=== PATIENT | male | born 1960 | race Caucasian/White ===

== ENCOUNTER 2016-05-29 08:24 | Inpatient (IN) | payer MEDICAID, OTHER ==
[2016-05-29] MEDS ORDERED: ONDANSETRON 4 MG/2 ML VIAL IVP ONE (08:41)
[2016-05-29] MEDS ORDERED: NS 1,000 ML IV ONE ×2 (08:41→10:11)
--- NOTE | 2016-05-29 08:56 | UCPHY ---
H & P Time Seen by Provider: 05/29/16 08:42 Patient Type: Established HPI/ROS: CHIEF COMPLAINT: Left lower quadrant pain HISTORY OF PRESENT ILLNESS: 55-year-old male presents with a 3 day history of left lower quadrant abdominal pain. The pain is moderate to severe and constant. Associated with a feeling of needing to have a bowel movement. He has tried laxatives and ibuprofen without any relief. No associated vomiting, dysuria, diarrhea or constipation. No prior similar symptoms. REVIEW OF SYSTEMS: Constitutional: No fever, no chills Eyes: No visual changes ENT: No sore throat Respiratory: No cough, no shortness of breath Cardiac: No chest pain Genitourinary: No hematuria, no dysuria Musculoskeletal: No leg pain or swelling Skin: No rash Neurological: No headache Psychiatric: No depression Past Medical/Surgical History: Denies Social History: no recent alcohol FH: Noncontributory Smoking Status: Never smoked Physical Exam: General Appearance: Alert, appears in pain Eyes: Pupils equal and round, no conjunctival pallor or injection ENT, Mouth: Mucous membranes moist Neck: Normal inspection Respiratory: Lungs are clear to auscultation Cardiovascular: Regular rate and rhythm Gastrointestinal: Abdomen is soft, left lower quadrant and suprapubic tenderness Neurological: A&O, nonfocal, normal gait Skin: Warm and dry, no rash Extremities: Nontender, no pedal edema Psychiatric: Mood and affect normal Constitutional: Initial Vital Signs Temperature (C) 36.6 C 05/29/16 08:43 Heart Rate 62 05/29/16 08:43 Respiratory Rate 18 05/29/16 08:43 Blood Pressure 118/80 05/29/16 08:43 O2 Sat (%) 96 05/29/16 08:43 O2 Delivery Mode Room Air Allergies/Adverse Reactions: cephalexin monohydrate [From Keflex] Allergy (Verified 05/29/16 14:34) Anaphylaxis Home Medications: Medication Instructions Recorded Ibuprofen [Motrin (*)] 400 - 600 mg PO Q4-6PRN PRN 05/29/16 Medical Decision Making - Diagnostics Imaging: CT scan of the abdomen and pelvis read by Dr. Andres Sanchez reveals acute sigmoid diverticulitis with perforation. There is a significant amount of air in the retroperitoneum. ED Course/Re-evaluation: This patient presents with left lower quadrant pain, without peritoneal signs. Clinical presentation consistent with diverticulitis versus kidney stone. Morphine 6 mg IV and Zofran 4 mg IV given for pain control. Stat CT scan of the abdomen pelvis ordered. The patient required multiple doses of IV narcotics for pain control. CT scan results discussed with the patient. Levaquin and Flagyl IV given for diverticulitis. Dr. Juan Miguel Santos was consulted and will admit the patient to [facility].. Differential Diagnosis: Differential diagnosis includes though it is not limited to appendicitis, cholecystitis, diverticulitis, pyelonephritis, bowel perforation, small bowel obstruction. - Data Points Laboratory Results: Laboratory Results 05/29/16 09:00 05/29/16 09:00 05/29/16 05/29/16 05/29/16 10:45 09:00 09:00 WBC 16.44 10^3/uL H 10^3/uL (3.80-9.50) RBC 4.58 10^6/uL 10^6/uL (4.40-6.38) Hgb 14.3 g/dL g/dL (13.7-17.5) Hct 41.0 % % (40.0-51.0) MCV 89.5 fL fL (81.5-99.8) MCH 31.2 pg pg (27.9-34.1) MCHC 34.9 g/dL g/dL (32.4-36.7) RDW 12.8 % % (11.5-15.2) Plt Count 268 10^3/uL 10^3/uL (150-400) MPV 9.0 fL fL (8.7-11.7) Neut % (Auto) 85.4 % H % (39.3-74.2) Lymph % (Auto) 5.7 % L % (15.0-45.0) Wilkes % (Auto) 7.6 % % (4.5-13.0) Eos % (Auto) 0.2 % L % (0.6-7.6) Baso % (Auto) 0.2 % L % (0.3-1.7) Nucleat RBC Rel Count 0.0 % % (0.0-0.2) Absolute Neuts (auto) 14.04 10^3/uL H 10^3/uL (1.70-6.50) Absolute Lymphs (auto) 0.93 10^3/uL L 10^3/uL (1.00-3.00) Absolute Monos (auto) 1.25 10^3/uL H 10^3/uL (0.30-0.80) Absolute Eos (auto) 0.04 10^3/uL 10^3/uL (0.03-0.40) Absolute Basos (auto) 0.04 10^3/uL 10^3/uL (0.02-0.10) Absolute Nucleated RBC 0.00 10^3/uL 10^3/uL (0-0.01) Immature Gran % 0.9 % % (0.0-1.1) Immature Gran # 0.14 10^3/uL H 10^3/uL (0.00-0.10) Sodium 139 mEq/L mEq/L (134-144) Potassium 4.0 mEq/L mEq/L (3.5-5.2) Chloride 104 mEq/L mEq/L (97-110) Carbon Dioxide 19 mEq/l L mEq/l (22-31) Anion Gap 16 mEq/L mEq/L (8-16) BUN 12 mg/dL mg/dL (7-23) Creatinine 0.9 mg/dL mg/dL (0.7-1.3) Estimated GFR > 60 Glucose 105 mg/dL H mg/dL (70-100) Calcium 9.6 mg/dL mg/dL (8.5-10.4) Total Bilirubin Conjugated Bilirubin Unconjugated Bilirubin AST ALT Alkaline Phosphatase Total Protein Albumin Urine Color YELLOW Urine Appearance CLEAR Urine pH 5.5 (5.0-7.5) Ur Specific [place] 1.025 (1.002-1.030) Urine Protein 1+ H (NEGATIVE) Urine Ketones 3+ H (NEGATIVE) Urine Blood 1+ H (NEGATIVE) Urine Nitrate NEGATIVE (NEGATIVE) Urine Bilirubin POSITIVE H (NEGATIVE) Urine Urobilinogen 0.2 EU EU (0.2-1.0) Ur Leukocyte Esterase NEGATIVE (NEGATIVE) Urine RBC 1-3 /hpf /hpf (0-3) Urine WBC 0-1 /hpf /hpf (0-3) Ur Epithelial Cells 1+ /lpf /lpf (NONE-1+) Amorphous Sediment 2+ /hpf H /hpf (NONE-1+) Urine Bacteria 2+ /hpf H /hpf (NONE SEEN) Urine Mucus 3+ /lpf H /lpf (NONE-1+) Ur Culture Indicated? INDICATED H (NI) Urine Glucose NEGATIVE (NEGATIVE) 05/29/16 08:50 WBC RBC Hgb Hct MCV MCH MCHC RDW Plt Count MPV Neut % (Auto) Lymph % (Auto) Wilkes % (Auto) Eos % (Auto) Baso % (Auto) Nucleat RBC Rel Count Absolute Neuts (auto) Absolute Lymphs (auto) Absolute Monos (auto) Absolute Eos (auto) Absolute Basos (auto) Absolute Nucleated RBC Immature Gran % Immature Gran # Sodium Potassium Chloride Carbon Dioxide Anion Gap BUN Creatinine Estimated GFR Glucose Calcium Total Bilirubin 1.1 mg/dL mg/dL (0.1-1.4) Conjugated Bilirubin 0.5 mg/dL mg/dL (0.0-0.5) Unconjugated Bilirubin 0.6 mg/dL mg/dL (0.0-1.1) AST 19 IU/L IU/L (17-59) ALT 17 IU/L L IU/L (21-72) Alkaline Phosphatase 92 IU/L IU/L (38-126) Total Protein 7.6 g/dL g/dL (6.3-8.2) Albumin 4.0 g/dL g/dL (3.5-5.0) Urine Color Urine Appearance Urine pH Ur Specific [place] Urine Protein Urine Ketones Urine Blood Urine Nitrate Urine Bilirubin Urine Urobilinogen Ur Leukocyte Esterase Urine RBC Urine WBC Ur Epithelial Cells Amorphous Sediment Urine Bacteria Urine Mucus Ur Culture Indicated? Urine Glucose Medications Given: Discontinued Medications Hydromorphone HCl (Dilaudid) 1 mg IVP EDNOW ONE Stop: 05/29/16 12:52 Last Admin: 05/29/16 14:29 Dose: Not Given Sodium Chloride (Ns) 1,000 mls @ 0 mls/hr IV ONCE ONE PRN Reason: Wide Open Stop: 05/29/16 08:42 Last Admin: 05/29/16 09:18 Dose: 1,000 mls Sodium Chloride (Ns) 1,000 mls @ 0 mls/hr IV ONCE ONE PRN Reason: Wide Open Stop: 05/29/16 10:12 Last Admin: 05/29/16 10:32 Dose: 1,000 mls Levofloxacin/Dextrose (Levaquin 750 Mg (Premix)) 150 mls @ 100 mls/hr IV EDNOW ONE PRN Reason: Protocol Stop: 05/29/16 12:40 Last Admin: 05/29/16 12:13 Dose: 150 mls Metronidazole/Sodium Chloride (Flagyl 500 Mg (Premix)) 100 mls @ 100 mls/hr IV EDNOW ONE PRN Reason: Protocol Stop: 05/29/16 12:10 Last Admin: 05/29/16 12:46 Dose: 100 mls Morphine Sulfate (Morphine) 6 mg IVP EDNOW ONE Stop: 05/29/16 08:42 Last Admin: 05/29/16 09:08 Dose: 6 mg Morphine Sulfate (Morphine) 4 mg IVP EDNOW ONE Stop: 05/29/16 10:12 Last Admin: 05/29/16 10:32 Dose: 4 mg Morphine Sulfate (Morphine) 4 mg IVP EDNOW ONE Stop: 05/29/16 11:59 Last Admin: 05/29/16 12:14 Dose: 4 mg Ondansetron HCl (Zofran) 4 mg IVP EDNOW ONE Stop: 05/29/16 08:42 Last Admin: 05/29/16 09:18 Dose: 4 mg Departure - Departure Disposition: [facility] In[facility] Acute Clinical Impression: Diverticulitis Qualifiers: Diverticulitis site: large intestine Diverticulitis bleeding: without bleeding Diverticulitis complication: with perforation Qualified Code(s): K57.20 - Diverticulitis of large intestine with perforation and abscess without bleeding Condition: Fair - PQRS PQRS Measurement: NA
[2016-05-29 09:09] LABS: % IMMATURE GRANULYOCYTES 0.9 % (0.0-1.1); ABSOLUTE IMMATURE GRANULOCYTES 0.14 10^3/uL (0.00-0.10); ADD DIFF? NO; ADD MORPH? NO; ADD SCAN? NO; ATYPICAL LYMPHOCYTE FLAG 10 (0-99); FRAGMENT RBC FLAG 0 (0-99); HEMOGLOBIN 14.3 g/dL (13.7-17.5); LEFT SHIFT FLG 0 (0-99); LIPEMIA HEMOLYSIS FLAG 90 (0-99); MEAN CELL HEMOGLOBIN 31.2 pg (27.9-34.1); MEAN CELL HEMOGLOBIN CONCENTR. 34.9 g/dL (32.4-36.7); MEAN CELL VOLUME 89.5 fL (81.5-99.8); PLATELET CLUMPS FLAG 0 (0-99); PLATELET COUNT 268 10^3/uL (150-400); RED BLOOD CELL COUNT 4.58 10^6/uL (4.40-6.38); RED CELL DISTRIBUTION WIDTH 12.8 % (11.5-15.2)
[2016-05-29 09:24] LABS: ANION GAP 16 mEq/L (8-16); CALCIUM 9.6 mg/dL (8.5-10.4); CARBON DIOXIDE 19 mEq/l (22-31); CHLORIDE 104 mEq/L (97-110); CREATININE 0.9 mg/dL (0.7-1.3); GLOMERULAR FILTRATION RATE > 60; GLUCOSE 105 mg/dL (70-100); SODIUM 139 mEq/L (134-144)
[2016-05-29 10:47] LABS: COLOR YELLOW; LEUKOCYTE ESTERASE,URINE NEGATIVE (NEGATIVE); NITRITE,URINE NEGATIVE (NEGATIVE); PH,URINE 5.5 (5.0-7.5)
[2016-05-29 11:03] LABS: BACTERIA 2+ /hpf (NONE SEEN); MUCUS 3+ /lpf (NONE-1+)
[2016-05-29 11:04] LABS: AMORPHOUS 2+ /hpf (NONE-1+); WBC,URINE 0-1 /hpf (0-3)
[2016-05-29 11:30] LABS: BILIRUBIN,TOTAL 1.1 mg/dL (0.1-1.4); BILIRUBIN-CONJUGATED 0.5 mg/dL (0.0-0.5); BILIRUBIN-UNCONJUGATED 0.6 mg/dL (0.0-1.1); TOTAL PROTEIN 7.6 g/dL (6.3-8.2)
[2016-05-29] MEDS: HYDROmorphONE/DILAUDID 1 MG/ML SYR IVP ONE ×2 (12:45→14:29)
[2016-05-29] MEDS ORDERED: ONDANSETRON 4 MG/2 ML VIAL IVP PRN (14:27)
[2016-05-29] MEDS: LR 1,000 ML IV SCH (16:03)
--- NOTE | 2016-05-29 21:36 | GHP ---
DATE OF ADMISSION: 05/29/2016 CHIEF COMPLAINT: Left lower quadrant pain. PRESENT ILLNESS: The is the 4th day the patient has noted left lower quadrant pain. He has had charly e chills with this. No bowel movements for the last 2 days. Some nausea, which actually began at [facility] after receiving Dilaudid. He has never had a previous similar episode. ALLERGIES: None. CURRENT MEDICATIONS: None. SOCIAL HISTORY: Nonsmoker. Drinks alcohol, a couple beers a day. PAST SURGICAL HISTORY: Previous surgery, knee. REVIEW OF SYSTEMS: Denies asthma, heart trouble, diabetes, epilepsy, rheumatic fever. Single. PHYSICAL EXAM: HEENT: No scleral icterus. Pharynx clear. NECK: Supple without adenopathy. LUNG S: Clear. HEART:? Normal S1, S2 without murmur. ABDOMEN: Soft except for the left lower quadran t where there is mild guarding. No mass felt. No hernias present. EXTREMITIES, NEUROLOGIC: Gross ly normal. LABORATORY: Exams at [facility] include urine positive for bacteria and epithelial ce lls and ketones. Electrolytes fairly unremarkable with a creatinine of 0.9. White blood count 16,0 00, 85 segs, normal platelets, and hematocrit 41. A CT scan revealed sigmoid diverticulitis with some free air around the left colon, as well as quest ion of fluid tracking anterior to the psoas muscle. ASSESSMENT: Microperforation, left colon, with retroperitoneal air. The patient is afebrile and no t tachycardic. Abdomen is soft other than the left lower quadrant. I suspect this will resolve wit h IV antibiotics and bowel rest. He was started on Levaquin and Flagyl at [facility], and we will continue that regimen. Should his clinical condition deteriorate, he understands he mi ght need emergency colectomy. At the present time, there is no drainable fluid collection. He will be monitored daily with a CBC. /[id number]/MODL
[2016-05-30] MEDS: ONDANSETRON 4 MG/2 ML VIAL IVP PRN ×3 (04:08→21:55)
[2016-05-30 04:40] LABS: HEMOGLOBIN 12.2 g/dL (13.7-17.5); MEAN CELL HEMOGLOBIN 30.8 pg (27.9-34.1); MEAN CELL HEMOGLOBIN CONCENTR. 33.9 g/dL (32.4-36.7); MEAN CELL VOLUME 90.9 fL (81.5-99.8); RED BLOOD CELL COUNT 3.96 10^6/uL (4.40-6.38); RED CELL DISTRIBUTION WIDTH 12.9 % (11.5-15.2)
--- NOTE | 2016-05-30 06:38 | SOAPPROG ---
SOAP Progress Note Assessment/Plan: Assessment: Plan: Subjective: vss, af feels better abd soft, less tender no flatus nor stool. cont npo, antibioitcs, etc wbc down to 13 k Objective: Vital Signs Temp Pulse Resp BP Pulse Ox 37.1 C 87 20 127/76 H 93 05/30/16 03:59 05/30/16 03:59 05/30/16 03:59 05/30/16 03:59 05/30/16 03:59 Laboratory Results 05/30/16 04:26 05/29/16 05/30/16 05/31/16 05:59 05:59 05:59 Intake Total 2600 Balance 2600 ICD10 Worksheet Patient Problems: Problems Problem Status Onset Diverticulitis Acute
[2016-05-30] MEDS: levOFLOXACIN 500 MG/DEXTROSE 100 ML IV SCH (08:06)
[2016-05-30] MEDS: LR 1,000 ML IV SCH (21:55)
[2016-05-31 06:02] LABS: HEMATOCRIT 34.1 % (40.0-51.0); HEMOGLOBIN 11.7 g/dL (13.7-17.5); MEAN CELL HEMOGLOBIN 31.8 pg (27.9-34.1); MEAN CELL HEMOGLOBIN CONCENTR. 34.3 g/dL (32.4-36.7); MEAN CELL VOLUME 92.7 fL (81.5-99.8); RED BLOOD CELL COUNT 3.68 10^6/uL (4.40-6.38)
[2016-05-31] MEDS: levOFLOXACIN 500 MG/DEXTROSE 100 ML IV SCH (08:14)
--- NOTE | 2016-05-31 10:05 | SOAPPROG ---
SOAP Progress Note Assessment/Plan: Assessment: Plan: Subjective: vss, af abd with less pain. had a bm louis advance diet. Objective: Vital Signs Temp Pulse Resp BP Pulse Ox 36.9 C 76 18 129/87 H 91 L 05/31/16 07:06 05/31/16 07:06 05/31/16 07:06 05/31/16 07:06 05/31/16 07:06 Laboratory Results 05/31/16 05:11 05/30/16 05/31/16 06/01/16 05:59 05:59 05:59 Intake Total 2600 3330 Output Total 450 Balance 2600 2880 ICD10 Worksheet Patient Problems: Problems Problem Status Onset Diverticulitis Acute
[2016-05-31] MEDS ORDERED: LR 1,000 ML IV SCH (10:30)
[2016-06-01 05:38] LABS: HEMATOCRIT 33.1 % (40.0-51.0); HEMOGLOBIN 11.3 g/dL (13.7-17.5); MEAN CELL HEMOGLOBIN 30.6 pg (27.9-34.1); MEAN CELL HEMOGLOBIN CONCENTR. 34.1 g/dL (32.4-36.7); MEAN CELL VOLUME 89.7 fL (81.5-99.8); RED BLOOD CELL COUNT 3.69 10^6/uL (4.40-6.38); RED CELL DISTRIBUTION WIDTH 12.9 % (11.5-15.2)
--- NOTE | 2016-06-01 07:42 | SOAPPROG ---
SOAP Progress Note Assessment/Plan: Assessment: Plan: Subjective: vss, af wbc 9k abd softer, dehairing machine tender. had 2 bm's cont present care, possibly shift to po antibiotics tomorrow. Objective: Vital Signs Temp Pulse Resp BP Pulse Ox 37.2 C 71 16 124/80 H 95 05/31/16 23:27 05/31/16 23:27 05/31/16 23:27 05/31/16 23:27 05/31/16 23:27 Laboratory Results 06/01/16 04:36 05/31/16 06/01/16 06/02/16 05:59 05:59 05:59 Intake Total 3330 1790 Output Total 450 400 Balance 2880 1390 ICD10 Worksheet Patient Problems: Problems Problem Status Onset Diverticulitis Acute
[2016-06-01] MEDS: levOFLOXACIN 500 MG/DEXTROSE 100 ML IV SCH (08:57)
[2016-06-01] MEDS: ONDANSETRON 4 MG/2 ML VIAL IVP PRN (19:32)
[2016-06-01 23:02] VITALS: RESP 18
[2016-06-02 07:28] VITALS: BP 125/91; PULSE 79; TEMP 98.6; O2SAT 98
--- NOTE | 2016-06-02 07:57 | GDS ---
PRESENT ILLNESS: Patient was admitted with left lower quadrant pain. CT-documented diverticulitis with microperforation and some free air. HOSPITAL COURSE: Patient was treated with intravenous antibiotics. At the time of discharge, was m uch improved, much less pain, passing flatus and stools, tolerating a clear liquid diet. It is felt reasonable to discharge him home on levofloxacin and metronidazole as well as some p.r.n. Zofran. He will be followed up in the office in 7-10 days. FINAL DIAGNOSIS: Perforated diverticulitis. DISPOSITION: As above. /[id number]/MODL
[2016-06-02] MEDS: levOFLOXACIN 500 MG/DEXTROSE 100 ML IV SCH (09:10)
== END 2016-06-02 10:53 | disposition home or self-care (01) | DRG 392 ==
LOC: CED 08:24 → CEDHOLD 11:33 → UNDOADMIN 11:33 → F3E 11:33 → CED 13:32
PROVIDERS: ADMIT Surgery; ATTEND Surgery
DX: K57.20 Diverticulitis of large intestine with perforation and abscess without bleeding (principal)
CPT/HCPCS: 74176-PO; 80048-PO; 80076-PO; 81003-PO; 81015-PO; 85025-PO; 96361-PO; 96365-PO; 96366-PO; 96367-PO; 96375-PO; 96376-PO; G0463-PO; J1170; J1956; J2405

== ENCOUNTER 2016-06-05 08:33 | Inpatient (IN) | payer MEDICAID ==
[2016-06-05] MEDS ORDERED: ONDANSETRON 4 MG/2 ML VIAL IVP ONE (08:51)
[2016-06-05] MEDS ORDERED: HYDROmorphONE/DILAUDID 1 MG/ML SYR IVP ONE (08:51)
[2016-06-05 09:03] LABS: % IMMATURE GRANULYOCYTES 0.7 % (0.0-1.1); ADD DIFF? NO; ADD MORPH? NO; ADD SCAN? NO; ATYPICAL LYMPHOCYTE FLAG 20 (0-99); FRAGMENT RBC FLAG 0 (0-99); HEMATOCRIT 40.8 % (40.0-51.0); LEFT SHIFT FLG 0 (0-99); LIPEMIA HEMOLYSIS FLAG 90 (0-99); MEAN CELL HEMOGLOBIN 30.4 pg (27.9-34.1); MEAN CELL HEMOGLOBIN CONCENTR. 34.3 g/dL (32.4-36.7); MEAN CELL VOLUME 88.5 fL (81.5-99.8); MEAN PLATELET VOLUME 8.8 fL (8.7-11.7); PLATELET CLUMPS FLAG 30 (0-99); PLATELET COUNT 395 10^3/uL (150-400); RED BLOOD CELL COUNT 4.61 10^6/uL (4.40-6.38); RED CELL DISTRIBUTION WIDTH 12.9 % (11.5-15.2)
[2016-06-05] MEDS ORDERED: NS 1,000 ML IV ONE (09:03)
[2016-06-05] MEDS ORDERED: IOPAMIDOL (ISOVUE-300) 100 ML BTL IV ONE (09:09)
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
[2016-06-05 09:21] LABS: ALANINE AMINOTRANSFERASE 29 IU/L (21-72); ALBUMIN 4.4 g/dL (3.5-5.0); ALKALINE PHOSPHATASE 80 IU/L (38-126); ANION GAP 18 mEq/L (8-16); ASPARTATE AMINOTRANSFERASE 27 IU/L (17-59); BILIRUBIN,TOTAL 0.9 mg/dL (0.1-1.4); BILIRUBIN-CONJUGATED 0.6 mg/dL (0.0-0.5); BILIRUBIN-UNCONJUGATED 0.3 mg/dL (0.0-1.1); CALCIUM 9.6 mg/dL (8.5-10.4); CARBON DIOXIDE 19 mEq/l (22-31); CHLORIDE 105 mEq/L (97-110); CREATININE 0.8 mg/dL (0.7-1.3); GLOMERULAR FILTRATION RATE > 60; GLUCOSE 100 mg/dL (70-100); SODIUM 142 mEq/L (134-144); TOTAL PROTEIN 8.1 g/dL (6.3-8.2)
[2016-06-05] MEDS ORDERED: ONDANSETRON 4 MG/2 ML VIAL IVP PRN (10:59)
[2016-06-05 11:32] LABS: INR 1.24 (0.83-1.16); PROTIME(PATIENT) 15.6 SEC (12.0-15.0)
[2016-06-05 11:33] LABS: APTT 32.3 SEC (23.0-38.0)
--- NOTE | 2016-06-05 13:16 | GHP ---
DATE OF ADMISSION: 06/05/2016 CHIEF COMPLAINT: Perforated diverticulitis. HISTORY OF PRESENT ILLNESS: The patient is a 55-year-old man who was recently admitted on May 29, 2016 due to left lower quadrant pain. The CT scan at that time revealed sigmoid diverticulitis with some free air around the left colon. He was treated with IV antibiotics. At the time of disch arge he was passing flatus and tolerating a clear liquid diet. He was discharged on Levaquin and me tronidazole on June 02, 2016. He initially did well, but the past 2 nights he has been having i ncreased pain, and difficulty sleeping. He reports that his symptoms are similar than they were 2 w eeks ago. He had a CT scan performed which showed a 5 cm abscess which is new. He denies fevers. He has some nausea. PAST MEDICAL HISTORY: None. PAST SURGICAL HISTORY: Knee surgery. SOCIAL HISTORY: He denies tobacco use. He drinks 2-3 beers a day. MEDICATIONS: None. ALLERGIES: None. REVIEW OF SYSTEMS: He has been having more difficulty urinating. A 10-point review of systems othe rwise negative. PHYSICAL EXAMINATION: VITAL SIGNS: 37.4, 75, 140/89, 14, 98% on 2 L. GENERAL: Pleasant, sitting up in bed, appears tired but not toxic. HEENT: Normocephalic. No gross hearing deficits. Mucous membranes moist. Pupils equal and round. No scleral icterus. LUNGS: Clear to auscultation bilate rally. No increased work of breathing. CARDIAC: Regular rate. No peripheral edema. ABDOMEN: Louis wel sounds present. He is soft and relatively nontender on the right side of his abdomen. In his l eft lower abdomen and by his pubis he is much more tender. SKIN: Warm and dry. MUSCULOSKELETAL: Normal nails. RESULTS: [place] [id number]. His INR is 1.24. His chemistry panel is similar to discharge. IMPRESSION AND PLAN: The patient is a 55-year-old man who has recently been discharged with diverti culitis. Unfortunately he progressed and developed an abscess. He will have a CT-guided drainage p lacement of the abscess. We briefly discussed that surgery may still be needed. We will continue h im to be n.p.o. on Levaquin and Flagyl. I reported that if he continues to have difficulty urinatin g, we may need to place a [place]. /[id number]/MODL
[2016-06-05] MEDS ORDERED: FLUMAZENIL 0.5 MG/5 ML MDV IVP ONE (13:22)
[2016-06-05] MEDS ORDERED: NALOXONE HCL 0.4 MG/ML INJ ONE (13:22)
[2016-06-05] MEDS ORDERED: MIDAZOLAM 2 MG/2 ML VIAL ONE (13:23)
[2016-06-05] MEDS ORDERED: fentaNYL 100 MCG/2 ML INJ ONE (13:23)
--- NOTE | 2016-06-05 15:06 | POSTOPPROG ---
Post Op Note Date of Operation: 06/05/16 Surgeon: Ricki Lizarraga Anesthesia: IV Sedation (200 mcg Fentanyl, 4 mg Versed) Pre-op Diagnosis: Diverticular abscess Post-op Diagnosis: Diverticular abscess Indication: Diverticular abscess Procedure: CT drain placement Findings: Abscess, drained Inf/Abcess present in the surg proc area at time of surgery?: Yes EBL: Minimal Complications: No immediate Specimen(s): 30 mL brown fluid, discarded
[2016-06-05] MEDS: D5W 1/2 NS W/ 20 KCl/L 1,000 ML IV SCH (16:05)
[2016-06-06] MEDS: D5W 1/2 NS W/ 20 KCl/L 1,000 ML IV SCH ×2 (04:10→22:31)
--- NOTE | 2016-06-06 07:50 | SOAPPROG ---
SOAP Progress Note Assessment/Plan: Assessment: Plan: Subjective: hd 2 s/p drainage of diverticular abscess temp normal draining purlulent fluid. cont iv antibioitcs, clear liq diet. check cbc in am abd soft. Objective: Vital Signs Temp Pulse Resp BP Pulse Ox 37.1 C 87 17 119/86 H 95 06/06/16 03:46 06/06/16 03:46 06/06/16 03:46 06/06/16 03:46 06/06/16 03:46 06/05/16 06/06/16 06/07/16 05:59 05:59 05:59 Intake Total 2140 Output Total 20 Balance 2120 PT 15.6 SEC (12.0-15.0) H 06/05/16 Unknown INR 1.24 (0.83-1.16) H 06/05/16 Unknown ICD10 Worksheet Patient Problems: Problems Problem Status Onset Diverticular disease of intestine with perforation and abscess Acute Diverticulitis Acute
[2016-06-06] MEDS: ENOXAPARIN 40 MG/0.4 ML SYR SC SCH (08:35)
[2016-06-06] MEDS ORDERED: IBUPROFEN 200 MG TAB PO PRN (23:00)
[2016-06-07 06:03] LABS: HEMATOCRIT 35.3 % (40.0-51.0); LIPEMIA HEMOLYSIS FLAG 90 (0-99); MEAN CELL HEMOGLOBIN 30.8 pg (27.9-34.1); MEAN CELL VOLUME 90.5 fL (81.5-99.8); PLATELET COUNT 426 10^3/uL (150-400); RED CELL DISTRIBUTION WIDTH 13.1 % (11.5-15.2)
--- NOTE | 2016-06-07 06:47 | SOAPPROG ---
SOAP Progress Note Assessment/Plan: Assessment: Plan: Subjective: hd 3 vsws, af tolerating liquids abd soft drain still cloudy wbc down to normal access- successful drainage of abscess cont iv antibiotics, cont clear liq diet. leave drain in, reimage in several days Objective: Vital Signs Temp Pulse Resp BP Pulse Ox 37.0 C 68 14 116/73 97 06/07/16 04:00 06/07/16 04:00 06/07/16 04:00 06/07/16 04:00 06/07/16 04:00 Laboratory Results 06/07/16 05:35 06/06/16 06/07/16 06/08/16 05:59 05:59 05:59 Intake Total 2140 5850 Output Total 20 5 Balance 2120 5845 PT 15.6 SEC (12.0-15.0) H 06/05/16 Unknown INR 1.24 (0.83-1.16) H 06/05/16 Unknown ICD10 Worksheet Patient Problems: Problems Problem Status Onset Diverticular disease of intestine with perforation and abscess Acute Diverticulitis Acute
[2016-06-07] MEDS: ENOXAPARIN 40 MG/0.4 ML SYR SC SCH (10:07)
[2016-06-07] MEDS: IBUPROFEN 200 MG TAB PO PRN (18:38)
[2016-06-08] MEDS: ENOXAPARIN 40 MG/0.4 ML SYR SC SCH (09:34)
--- NOTE | 2016-06-08 14:54 | SOAPPROG ---
[facility] Progress Note Assessment/Plan: 06/08/16 14:46 Assessment: I was asked to see this patient by Dr. Santos. The patient was quite anxious about his medical condition. Approximately 30 minutes were used to review the pathophysiology, anatomy, CTs and the ongoing plan with him. Follow up labs are pending. The drain has a more feculent appearance. His VS are stable. He is eating and moving his bowels. His abscess appears to be converting to a controlled fistula. Plan: Increase frequency of flushing. Consider a change to oral antibiotics. Consider postponing definitive surgery until he is nutritionally replete. Subjective: I'm feeling better Objective: Vital Signs Temp Pulse Resp BP Pulse Ox 36.9 C 75 18 137/85 H 98 06/08/16 08:10 06/08/16 08:10 06/08/16 08:10 06/08/16 08:10 06/08/16 08:10 Laboratory Results 06/07/16 05:35 06/07/16 06/08/16 06/09/16 05:59 05:59 05:59 Intake Total 5850 2250 Output Total 5 23 Balance 5845 2227 PT 15.6 SEC (12.0-15.0) H 06/05/16 Unknown INR 1.24 (0.83-1.16) H 06/05/16 Unknown - Time Spent With Patient Time Spent With Patient: 35 minutes Physical Exam - Physical Exam General Appearance: WD/WN, alert, no apparent distress Neck: other (Abscess right neck over SCM) ICD10 Worksheet Patient Problems: Problems Problem Status Onset Diverticular disease of intestine with perforation and abscess Acute Diverticulitis Acute
[2016-06-08 16:55] LABS: % IMMATURE GRANULYOCYTES 1.1 % (0.0-1.1); ABSOLUTE IMMATURE GRANULOCYTES 0.08 10^3/uL (0.00-0.10); ADD DIFF? NO; ADD MORPH? NO; ADD SCAN? NO; ATYPICAL LYMPHOCYTE FLAG 20 (0-99); FRAGMENT RBC FLAG 0 (0-99); HEMATOCRIT 38.4 % (40.0-51.0); HEMOGLOBIN 12.9 g/dL (13.7-17.5); LEFT SHIFT FLG 0 (0-99); LIPEMIA HEMOLYSIS FLAG 80 (0-99); MEAN CELL HEMOGLOBIN 30.4 pg (27.9-34.1); MEAN CELL HEMOGLOBIN CONCENTR. 33.6 g/dL (32.4-36.7); MEAN CELL VOLUME 90.6 fL (81.5-99.8); MEAN PLATELET VOLUME 8.7 fL (8.7-11.7); PLATELET CLUMPS FLAG 0 (0-99); PLATELET COUNT 525 10^3/uL (150-400); RED BLOOD CELL COUNT 4.24 10^6/uL (4.40-6.38); RED CELL DISTRIBUTION WIDTH 13.1 % (11.5-15.2)
[2016-06-08 17:37] LABS: ALANINE AMINOTRANSFERASE 31 IU/L (21-72); ALKALINE PHOSPHATASE 61 IU/L (38-126); ANION GAP 14 mEq/L (8-16); ASPARTATE AMINOTRANSFERASE 24 IU/L (17-59); BILIRUBIN,TOTAL 0.5 mg/dL (0.1-1.4); CALCIUM 9.4 mg/dL (8.5-10.4); CARBON DIOXIDE 23 mEq/l (22-31); CHLORIDE 102 mEq/L (97-110); CREATININE 0.8 mg/dL (0.7-1.3); GLOMERULAR FILTRATION RATE > 60; GLUCOSE 85 mg/dL (70-100); POTASSIUM 4.3 mEq/L (3.5-5.2); SODIUM 139 mEq/L (134-144); TOTAL PROTEIN 7.4 g/dL (6.3-8.2)
[2016-06-08] MEDS: IBUPROFEN 200 MG TAB PO PRN (22:53)
[2016-06-09] MEDS: ENOXAPARIN 40 MG/0.4 ML SYR SC SCH (08:38)
[2016-06-09] MEDS ORDERED: HYDROCODONE/APAP 5/325 TAB PO PRN (08:42)
--- NOTE | 2016-06-09 08:42 | SOAPPROG ---
SOAP Progress Note Assessment/Plan: Assessment: Plan: Subjective: vss, af abd soft, non tender. drainage out catheter clearly feculent, ie controlled colonic fistula. this may close, but other option is colectomy and primary ananstamosis. discuused this with the patient, who is till against the thought of surgery. will cange to po antibioitcs, likel y home tomorrow with drain. the follow as outpatient. Objective: Vital Signs Temp Pulse Resp BP Pulse Ox 36.6 C 69 14 128/81 H 94 06/09/16 08:03 06/09/16 08:03 06/09/16 08:03 06/09/16 08:03 06/09/16 08:03 Laboratory Results 06/08/16 16:35 06/08/16 16:35 06/08/16 06/09/16 06/10/16 05:59 05:59 05:59 Intake Total 2250 490 Output Total 23 15 Balance 2227 475 PT 15.6 SEC (12.0-15.0) H 06/05/16 Unknown INR 1.24 (0.83-1.16) H 06/05/16 Unknown ICD10 Worksheet Patient Problems: Problems Problem Status Onset Diverticular disease of intestine with perforation and abscess Acute Diverticulitis Acute
[2016-06-09] MEDS: metroNIDAZOLE 500 MG TAB PO SCH ×2 (13:42→22:30)
[2016-06-09] MEDS: IBUPROFEN 200 MG TAB PO PRN (22:37)
[2016-06-10] MEDS: metroNIDAZOLE 500 MG TAB PO SCH ×3 (05:32→21:29)
[2016-06-10] MEDS: ENOXAPARIN 40 MG/0.4 ML SYR SC SCH (09:28)
--- NOTE | 2016-06-10 14:12 | SOAPPROG ---
SOAP Progress Note Assessment/Plan: Assessment: Plan: Subjective: vss, af abd soft drainage purulent, not green. check abscessogram today. Objective: Vital Signs Temp Pulse Resp BP Pulse Ox 36.9 C 65 18 127/91 H 93 06/10/16 08:05 06/10/16 08:05 06/10/16 08:05 06/10/16 08:05 06/10/16 08:05 Laboratory Results 06/08/16 16:35 06/08/16 16:35 06/09/16 06/10/16 06/11/16 05:59 05:59 05:59 Intake Total 490 1500 Output Total 15 22 Balance 475 1478 PT 15.6 SEC (12.0-15.0) H 06/05/16 Unknown INR 1.24 (0.83-1.16) H 06/05/16 Unknown ICD10 Worksheet Patient Problems: Problems Problem Status Onset Diverticular disease of intestine with perforation and abscess Acute Diverticulitis Acute
--- NOTE | 2016-06-10 23:42 | GDS ---
[f rep st] DISCHARGE SUMMARY HISTORY OF PRESENT ILLNESS: The patient was in the hospital several weeks ago with diverticulitis, discharged home, then returned several days later with chills. A CT scan showed the development of a new abscess. This was drained by the interventional radiologist. At the time of discharge now, a fistulogram shows communication with the sigmoid colon, but the benjamin ent is stable, afebrile and normal white count. He wants to avoid surgery. I explained that it is possible the fistula will close. He understands. I have recommended a sigmoid colectomy as a sure way to fix his problems but, again, is reluctant to have surgery at the present time. FINAL DIAGNOSIS: Perforated diverticulitis with abscess formation. OPERATIONS: 1. Percutaneous CT-guided drainage of the abscess. 2. Fistulogram. DISPOSITION: Home. DISCHARGE MEDICATIONS: Flagyl and Levaquin. FOLLOWUP: Dr. Santos next week and call immediately for fever, chills, worsening pain. /[id number]/MODL
[2016-06-11 00:07] VITALS: RESP 16; O2SAT 97
[2016-06-11] MEDS: metroNIDAZOLE 500 MG TAB PO SCH (05:41)
[2016-06-11 07:13] VITALS: BP 113/81; PULSE 78; TEMP 98
[2016-06-11] MEDS: ENOXAPARIN 40 MG/0.4 ML SYR SC SCH (07:32)
== END 2016-06-11 10:30 | disposition home or self-care (01) | DRG 392 ==
LOC: F3E 12:57
PROVIDERS: ADMIT Surgery; ATTEND Surgery
PROC: 0D9E30Z Drainage of Large Intestine with Drainage Device, Percutaneous Approach (ICD-10-PCS; principal; 2016-06-05 14:30)
DX: K57.20 Diverticulitis of large intestine with perforation and abscess without bleeding (principal)
CPT/HCPCS: 96374; J1170; J1650; J1956; J2250; J2310; J2405; J3010; Q9967

== ENCOUNTER → 2016-06-24 | Day surgery (SDC) | payer MEDICAID | END | disposition home or self-care (01) | LOC: FIMAGING 14:08 | PROVIDERS: ATTEND Surgery | PROC: 3E0 Administration, Physiological Systems and Anatomical Regions, Introduction (ICD-10-PCS; principal; 2016-06-24) | PROC: 0WPGX0Z Removal of Drainage Device from Peritoneal Cavity, External Approach (ICD-10-PCS; principal; 2016-06-24) | DX: Z48.03 Encounter for change or removal of drains (principal); Z87.19 Personal history of other diseases of the digestive system | CPT/HCPCS: 49422; 49424; 76000; C1769 ==

== ENCOUNTER 2016-11-06 08:12 | Observation (INO) | payer MEDICAID ==
[2016-11-06] MEDS ORDERED: fentaNYL 100 MCG/2 ML INJ ONE ×3 (08:13→15:12)
[2016-11-06] MEDS ORDERED: ONDANSETRON 4 MG/2 ML VIAL ONE ×2 (08:13→15:00)
[2016-11-06] MEDS ORDERED: NS 1,000 ML IV ONE ×2 (08:14→09:17)
[2016-11-06] MEDS ORDERED: ONDANSETRON 4 MG/2 ML VIAL IVP ONE ×2 (08:24→09:11)
[2016-11-06 08:32] LABS: % IMMATURE GRANULYOCYTES 0.4 % (0.0-1.1); ABSOLUTE IMMATURE GRANULOCYTES 0.02 10^3/uL (0.00-0.10); ADD DIFF? NO; ADD MORPH? NO; ADD SCAN? NO; ATYPICAL LYMPHOCYTE FLAG 30 (0-99); FRAGMENT RBC FLAG 0 (0-99); HEMATOCRIT 41.7 % (40.0-51.0); LEFT SHIFT FLG 0 (0-99); LIPEMIA HEMOLYSIS FLAG 80 (0-99); MEAN CELL HEMOGLOBIN 29.5 pg (27.9-34.1); MEAN CELL HEMOGLOBIN CONCENTR. 33.6 g/dL (32.4-36.7); MEAN PLATELET VOLUME 9.1 fL (8.7-11.7); PLATELET CLUMPS FLAG 0 (0-99); PLATELET COUNT 265 10^3/uL (150-400); RED BLOOD CELL COUNT 4.74 10^6/uL (4.40-6.38); RED CELL DISTRIBUTION WIDTH 13.5 % (11.5-15.2)
[2016-11-06 08:44] LABS: ALANINE AMINOTRANSFERASE 34 IU/L (21-72); ALBUMIN 4.2 g/dL (3.5-5.0); ALKALINE PHOSPHATASE 84 IU/L (38-126); ANION GAP 11 mEq/L (8-16); ASPARTATE AMINOTRANSFERASE 26 IU/L (17-59); BILIRUBIN,TOTAL 0.4 mg/dL (0.1-1.4); BILIRUBIN-CONJUGATED 0.2 mg/dL (0.0-0.5); BILIRUBIN-UNCONJUGATED 0.2 mg/dL (0.0-1.1); CALCIUM 9.3 mg/dL (8.5-10.4); CARBON DIOXIDE 23 mEq/l (22-31); CHLORIDE 107 mEq/L (97-110); CREATININE 0.8 mg/dL (0.7-1.3); GLOMERULAR FILTRATION RATE > 60; GLUCOSE 114 mg/dL (70-100); POTASSIUM 4.1 mEq/L (3.5-5.2); SODIUM 141 mEq/L (134-144)
[2016-11-06] MEDS ORDERED: HYDROmorphONE/DILAUDID 1 MG/ML SYR ONE (08:44)
--- NOTE | 2016-11-06 08:44 | CPEKG ---
Heart Rate: 71 RR Interval: 845 P-R Interval: 160 QRSD Interval: 112 QT Interval: 424 QTC Interval: 461 P [place]: 80 QRS [place]: 86 T Wave [place]: 38 EKG Severity - ABNORMAL ECG - EKG Impression: SINUS RHYTHM EKG Impression: INCOMPLETE RIGHT BUNDLE BRANCH BLOCK Electronically Signed By: Kaylyn Hess 06-Nov-2016 08:46:25
[2016-11-06] MEDS ORDERED: HYDROmorphONE/DILAUDID 1 MG/ML SYR IVP ONE ×2 (08:47→10:24)
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
[2016-11-06] MEDS ORDERED: IOPAMIDOL (ISOVUE-300) 100 ML BTL ONE (08:54)
[2016-11-06] MEDS ORDERED: BUPIVACAINE 0.5% 30 ML SDV ONE (13:14)
--- NOTE | 2016-11-06 13:16 | PDHPUP ---
History & Physical Update H&P update statement: This history and physical update is based on an assessment of the patient which was completed after admission or registration (within 24 hours), but prior to the surgery/procedure. H&P update: H&P reviewed & patient examined, no change in patient's condition since H&P completed
--- NOTE | 2016-11-06 13:19 | PDGENHP ---
History & Physical Chief Complaint: hernia History of Present Illness: male with incarcerated rt femoral hernia confirmed on ct/ admit for repair/ risks and options fully discussed/ unable to reduce in er Pertinent Past, Social, Family History: recent diverticulitis/ no other surgeries. ros -. all pcn. meds abx Relevant Physical Exam: heent ok. cor rr. chest clear. abd soft, very tender over rt femoral mass. gen: ok Cardiorespiratory Assessment: incarcerated rt femoral hernia. plan lap or open repair
[2016-11-06] MEDS ORDERED: levOFLOXACIN 500 MG/DEXTROSE 100 ML IV ONE (13:35)
[2016-11-06 13:38] LABS: COLOR YELLOW; LEUKOCYTE ESTERASE,URINE NEGATIVE (NEGATIVE); NITRITE,URINE NEGATIVE (NEGATIVE)
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
[2016-11-06] MEDS ORDERED: DEXAMETHASONE 4 MG/ML VIAL ONE (13:45)
[2016-11-06] MEDS ORDERED: PROPOFOL/EMULSION 500 MG/50 ML BOTTLE IV ONE (13:45)
[2016-11-06] MEDS ORDERED: LIDOCAINE 2% 5 ML SDV ONE (13:45)
[2016-11-06] MEDS ORDERED: ROCURONIUM 50 MG/5 ML VIAL ONE (13:46)
[2016-11-06] MEDS ORDERED: LR 1,000 ML IV ONE (13:51)
[2016-11-06] MEDS ORDERED: DIAZEPAM 10 MG/2 ML SYR ONE (14:33)
[2016-11-06] MEDS ORDERED: KETOROLAC 30 MG/1 ML SDV ONE (15:04)
[2016-11-06] MEDS ORDERED: HYDROCODONE/APAP 5/325 TAB PO PRN (15:19)
[2016-11-06] MEDS ORDERED: ALBUTEROL 3 ML DEYVIAL IH PRN (15:19)
[2016-11-06] MEDS ORDERED: fentaNYL 100 MCG/2 ML INJ IVP PRN (15:19)
[2016-11-06] MEDS ORDERED: NALOXONE HCL 0.4 MG/ML INJ IVP PRN (15:19)
--- NOTE | 2016-11-06 15:59 | POSTANESTH ---
Post Anesthetic Evaluation Cardiovascular Status: Normal, Stable Respiratory Status: Normal, Stable Level of Consciousness/Mental Status: Can Participate in Eval Pain Control: Adequate, Prn Tx Ordered Nausea/Vomiting Control: Adequate, Prn Tx Ordered Complications Possibly Related to Anesthesia: None Noted
--- NOTE | 2016-11-06 16:25 | POSTOPPROG ---
Post Op Note Date of Operation: 11/06/16 Surgeon: Titus Echols Anesthesiologist: LAKIA Anesthesia: GET(General Endotracheal) Pre-op Diagnosis: INCARCERATED RIGHT FEMORAL HERNIA Post-op Diagnosis: SAME Indication: PAIN Procedure: LAPAROSCOPIC REPAIR OF INCARCERATED RIGHT FEMORAL HERNIA AND DIAGNOSTIC LAP Findings: REDUCIBLE RIGHT FEMORAL HERNIA UNDER ANESTHESIA WITH VIABLE BOWEL Inf/Abcess present in the surg proc area at time of surgery?: No Depth: Organ Space EBL: Minimal Complications: NONE Specimen(s): NONE
[2016-11-06] MEDS ORDERED: ONDANSETRON 4 MG/2 ML VIAL IVP PRN (16:26)
[2016-11-06] MEDS ORDERED: HYDROmorphONE/DILAUDID 1 MG/ML SYR IVP PRN (16:26)
[2016-11-06] MEDS ORDERED: OXYCODONE/APAP 5/325 TAB PO PRN (16:26)
[2016-11-06] MEDS ORDERED: D5W 1/2 NS W/ 20 KCl/L 1,000 ML IV SCH (16:30)
[2016-11-06] MEDS: KETOROLAC 15 MG/1 ML SDV IVP SCH (17:33)
--- NOTE | 2016-11-06 20:14 | SOAPPROG ---
SOAP Progress Note Assessment/Plan: Assessment: POSTOP DOING GREAT/ WOUNDS OK/ TOLERATING PO Plan:HOME IN AM 11/06/16 20:13 Objective: Vital Signs Temp Pulse Resp BP Pulse Ox 36.7 C 59 L 18 128/74 H 97 11/06/16 19:06 11/06/16 19:06 11/06/16 19:06 11/06/16 19:06 11/06/16 19:06 11/05/16 11/06/16 11/07/16 05:59 05:59 05:59 Intake Total 1430 Output Total 5 Balance 1425 ICD10 Worksheet Patient Problems: Problems Problem Status Onset Diverticulitis Acute Incarcerated femoral hernia Acute Diverticular disease of intestine with perforation and abscess Acute
[2016-11-07] MEDS: KETOROLAC 15 MG/1 ML SDV IVP SCH ×2 (00:38→05:46)
[2016-11-07 00:52] VITALS: RESP 16
[2016-11-07 11:10] VITALS: BP 121/86; PULSE 66; TEMP 98.3; O2SAT 95
--- NOTE | 2016-11-07 11:16 | SOAPPROG ---
SOAP Progress Note Assessment/Plan: Assessment: 56yo M POD#1 s/p lap right femoral hernia repair with dx lap Pain controlled s rx tolerating clear liquid diet Passing flatus Abdominal pain from diverticulitis improving on IV levaquin Dispo: dc home today with PO antibiotics. avoid heavy lifting/pushing/pulling x 2 weeks. f/u 2 weeks. call with any worsening symptoms, quetsions or concerns S: feeling well. wants to go home. tolerating clears. passing flatus and ambulating O: sitting upright in bed, comfortable, NAD No increased WOB No peripheral edema +BS, soft, nondistended, nontender. incisions CDI. no evidence of recurrent hernia Objective: Vital Signs Temp Pulse Resp BP Pulse Ox 36.8 C 66 16 121/86 H 95 11/07/16 11:06 11/07/16 11:06 11/07/16 11:06 11/07/16 11:06 11/07/16 11:06 11/06/16 11/07/16 11/08/16 05:59 05:59 05:59 Intake Total 2838 Output Total 5 Balance 2833 ICD10 Worksheet Patient Problems: Problems Problem Status Onset Diverticulitis Acute Incarcerated femoral hernia Acute Diverticular disease of intestine with perforation and abscess Acute
--- NOTE | 2016-11-07 12:42 | GDS ---
[f rep st] DISCHARGE SUMMARY ADMITTING DIAGNOSES: 1. Mild diverticulitis. 2. Right incarcerated femoral hernia. SECONDARY DIAGNOSES: None. HOSPITAL COURSE: The patient is a 56-year-old man who presented to the emergency room complaining o f abdominal pain. He had a CT performed which showed mild sigmoid diverticulitis with a nonobstruct ing right femoral hernia containing small bowel. He was taken to the operating room by Dr. Titus Echols for a laparoscopic repair of incarcerated right femoral hernia, as well as diagnostic laparosc opy. The bowel appeared intact and viable. On postoperative day #1 he was tolerating a clear liqui d diet, passing flatus. Pain was well controlled without use of pain medication, and he desired dis charge. DISCHARGE CONDITION: Being discharged home in stable condition. Pain is controlled without use of pain medication. Tolerating clear liquid diet. Ambulating without assistance. DISCHARGE MEDICATIONS: He refused a prescription for narcotic pain medication. He was sent home wi th prescription for Levaquin and Flagyl. He was instructed to resume home medications. Please see EMR for further detail. DISCHARGE INSTRUCTIONS AND FOLLOWUP: He will follow up with Dr. Titus Echols in 2 weeks. He will continue antibiotics as directed for acute diverticulitis. He understands to avoid heavy lifting, p ushing, or pulling for 2 weeks. He may shower. He understands to call our office if any worsening symptoms, questions, or concerns. /[id number]/MODL
== END 2016-11-07 11:57 | disposition home or self-care (01) ==
LOC: CED 08:12 → INTOOBSV 12:15 → F1N 17:09
PROVIDERS: ADMIT Surgery; ATTEND Surgery
PROC: 0YU74JZ Supplement Right Femoral Region with Synthetic Substitute, Percutaneous Endoscopic Approach (ICD-10-PCS; principal; 2016-11-06 14:15)
DX: K41.30 Unilateral femoral hernia, with obstruction, without gangrene, not specified as recurrent (principal); K57.32 Diverticulitis of large intestine without perforation or abscess without bleeding; I45.10 Unspecified right bundle-branch block; Z87.820 Personal history of traumatic brain injury
CPT/HCPCS: 49659; 74177; 93005; C1727; G0378; 80048-PO; 80076-PO; 82270-PO; 83605-PO; 83690-PO; 85025-PO; 96365; C1781; J1100; J1170; J1885; J1956; J2405; J2704; J3010; Q9967